=== PATIENT | male | born 1995 | race Caucasian/White ===

== ENCOUNTER 2016-08-06 05:03 | Day surgery (SDC) | payer OTHER ==
--- NOTE | 2016-07-24 14:09 | HISTORY & PHYSICAL EXAMINATION ---
DATE OF ADMISSION: 08/06/2016 CHIEF COMPLAINT: Left shoulder pain. HISTORY OF PRESENT ILLNESS: This 20-year-old male presents to the clinic for his preoperative history and physical. The patient has a 3+ year history of left shoulder injury with chronic subluxation. 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 The patient states that he has had approximately 10 instances of subluxation issue to date. At this time, the patient denies numbness or tingling in his left shoulder, swelling or bruising, but states he feels very unstable with certain movements. PAST SURGICAL HISTORY: Hypospadias repair, undescended testicle surgery, bilateral myringotomy, wisdom tooth extraction repair. PAST MEDICAL HISTORY: Noncontributory. FAMILY HISTORY: Mother had breast cancer. ALLERGIES: The patient has no known drug allergies. CURRENT MEDICATIONS: Taken at present none. SOCIAL HISTORY: The patient denies a history of smoking or illicit drug use, states that he consumes approximately 7-8 alcoholic beverages per week. PHYSICAL EXAMINATION: SKIN: The patient's skin is normal in appearance. No open skin lesions at discharge. EYES: Pupils are equal and reactive to light and accommodating. Extraocular movements are intact. EARS: Canals are clear of cerumen. Tympanic membranes are intact bilaterally with no bulging or effusion. NOSE: Turbinates pink and boggy in appearance. No appreciable rhinorrhea. THROAT: Posterior oropharynx is clear with absence of edema, erythema or exudate. CARDIOVASCULAR: The patient has a regular rate and rhythm with no murmurs or gallops appreciated. LUNGS: Auscultation of the lung wren reveals clear breath sounds throughout with no wheezing, rales or rhonchi. ABDOMEN: Soft, nonobese, nondistended, nontender with normoactive bowel sounds. EXTREMITIES: Left shoulder, the patient has no tenderness to palpation over the AC joint, glenohumeral groove, biceps tendon or posterior shoulder musculature. He has no tenderness over the proximal humerus. The patient has a negative Windham's test with thumbs up and down 0 and 30 degrees. He is able to forward flex and abduct 90 degrees and provide resistance without pain. He has a negative empty can test in the left upper extremity, negative subscapularis lift off test, negative apprehension and relocation test, negative sulcus sign, negative Batista-Dilan impingement test, negative Neer's impingement test, negative internal rotation test. The patient does experience positive cross arm test and positive test with externally rotation of the left shoulder. The patient is able to easily reach over head without any discomfort. He has no edema, erythema, ecchymosis, warmth or palpable deformity. He is neurovascularly intact in the lower extremities. His peripheral pulses are palpable. Capillary refill is brisk. All other extremities are normal in appearance with appropriate range of motion and strength. NEUROLOGIC: Cranial nerves II through XII are intact. No motor or sensory deficit. PSYCHOLOGICAL AND GENERAL: The patient is alert and oriented x3 with proper grooming and hygiene. DIAGNOSIS: Left shoulder recurrent instability. PROCEDURE: Left shoulder arthroscopy, labral/rotator cuff repair versus debridement, subacromial decompression, biceps tenotomy, remplissage, and examination under anesthesia. RADIOGRAPHIC IMAGING: Images of left shoulder obtained previously showed no fracture dislocations/subluxation. MRI shows anterior labral tear, small Hill-Sachs lesion and rotator cuff with minimal tendinosis. PLAN: The patient is scheduled to undergo the procedure with Dr. Luisito Vieira at the [facility] on 08/06/2016 pending PCP clearance. Risks and complications of surgery such as infection, bleeding, pain, scarring, nerve and blood vessel damage, weakness, wound problems, stiffness, incomplete relief of symptoms, heart attack, stroke, , hardware failure, fracture, recurrent tear and arthritis were explained to the patient and he understands and agrees. Written consent to perform the procedure was obtained. At this point, there is no indication for any preoperative testing. We will be awaiting medical clearance from the patient's primary care provider. The patient will be scheduled for his postoperative followup with Dr. Vieira in 2 weeks after the surgery. He would do his physical therapy starting 2-3 days after surgery with his return on campus. The patient was given a prescription for [place] Eagle for postoperative pain control. He is advised that he will be provided with an UltraSling for his left upper extremity following surgery. The patient verbalized understanding of all information provided, thanked us for the care that he received in our clinic and states that if he has any other questions or concerns that should arise prior to his scheduled procedure date, he will contact the clinic. BALAJI
[2016-08-01 14:55] VITALS: BMI 27.0
[~2016-08-06] VITALS: Ht 180.3 cm; Wt 88.6 kg
[2016-08-06 05:37] VITALS: BP 127/63; PULSE 73; TEMP 37; O2SAT 98; Ht 180.3 cm; Wt 88.6 kg
[2016-08-06] MEDS ORDERED: LACTATED RINGER'S 1000ML 1,000 ML IV SCH (06:00)
[2016-08-06] MEDS ORDERED: ONDANSETRON INJ 2 MG/ML 2 ML VIAL ONE ×2 (06:15→08:52)
[2016-08-06] MEDS ORDERED: GLYCOPYRROLATE INJ 0.2 MG/ML VIAL ONE ×2 (06:15→08:52)
[2016-08-06] MEDS ORDERED: DEXAMETHASONE SOD INJ 4 MG/ML VIAL ONE (06:15)
[2016-08-06] MEDS ORDERED: MEPIVACAINE HCL 1.5% 30 ML VIAL ONE (06:15)
[2016-08-06] MEDS ORDERED: BUPIVACAINE 0.5 % 5 MG/1 ML PF 10ML VIAL ONE (06:15)
[2016-08-06] MEDS ORDERED: NEOSTIGMINE METHYLSULFATE 5 MG/5 ML SYR ONE (06:15)
[2016-08-06] MEDS ORDERED: ROCURONIUM BROMIDE 10 MG/ML 5 ML VIAL ONE ×3 (06:15→09:13)
[2016-08-06] MEDS ORDERED: PROPOFOL IV EMULSION 10 MG/ML 20 ML VIAL IV ONE (06:15)
[2016-08-06] MEDS ORDERED: LIDOCAINE HCL 2% 2 ML VIAL (20MG/ML) ONE (06:15)
[2016-08-06] MEDS ORDERED: MIDAZOLAM HCL 1 MG/ML 2ML VIAL ONE ×2 (06:15)
[2016-08-06] MEDS ORDERED: FENTANYL CITRATE INJ 50 MCG/1 ML 2 ML VIAL ONE ×3 (06:16→09:34)
[2016-08-06] MEDS ORDERED: CEFAZOLIN IV 2,000 MG/60 ML D5W IV ONE (06:47)
--- NOTE | 2016-08-06 06:57 | History & Physical Bridge Note ---
H&P Re-Evaluation Bridge Note: I have examined the patient, reviewed the History & Physical and in the interval since the performance of the History & Physical I have noted the following changes of clinical significance: No changes noted
[2016-08-06] MEDS ORDERED: PROMETHAZINE HCL INJ 12.5 MG in SODIUM CHLORIDE 0.9% 50ML 50 ML IV PRN (07:15)
[2016-08-06] MEDS ORDERED: EpHEDrine SULFATE INJ 50 MG/ML AMP IV PRN (07:15)
[2016-08-06] MEDS ORDERED: ATROPINE SULFATE 0.1 MG/ML 5ML SYR IV PRN (07:15)
[2016-08-06] MEDS ORDERED: ONDANSETRON INJ 2 MG/ML 2 ML VIAL IV PRN ×2 (07:15→11:00)
[2016-08-06] MEDS ORDERED: EpHEDrine SULFATE 50MG/5ML SYR ONE (07:43)
[2016-08-06] MEDS ORDERED: HYDROmorphone INJ 2 MG/ML SYR/VIAL ONE (10:03)
[2016-08-06] MEDS ORDERED: SODIUM CHLORIDE 0.9% INJ 10 ML VIAL ONE (10:03)
--- NOTE | 2016-08-06 10:56 | [facility] Post Operative Brief Note ---
Immediate Operative Summary Operative Date Aug 06, 2016. Pre-Operative Diagnosis Left Shoulder anterior labral tear, small Hill-Sachs lesion and rotator cuff with minimal tendinosis. Post-Operative Diagnosis Same, loose body, synovitis, SLAP tear, Inferior & posterior labral tears, bursitis Procedure(s) Performed 1) Left Shoulder Arthroscopy; Anterior Labral Repair. 2) Loose body Removal. 3) Extensive Debridement, Labrum, RTC, synevectomy, and bursectomy. 4) EUA. Surgeon Dr. Luisito Vieira Nurse Liaison Surgeon(s) Hernan Snyder PA-C (No fellow avail) Estimated Blood Loss 6 ml Findings As above. Specimens None per Dr. Vieira Drains n/a Anesthesia GET + interscalene nerve block Complication(s) None Disposition Recovery Room / PACU (Stable)
--- NOTE | 2016-08-06 10:59 | Discharge Instructions ---
Discharge Instructions Admission Reason for Admission: Left Shoulder Recurrent Instability Discharge Discharge Diagnosis / Problem: S/P Left shoulder labral repair, extensive debridment, loose body removal. Discharge Goals Goal(s): Decrease discomfort, Improve function, Increase independence Activity Recommendations Activity Limitations: per Instructions/Follow-up section Lifting Limitations: no more than 5 pounds Exercise/Sports Limitations: none (except following rehab.) May Resume Sexual Activity: when tolerated Shower/Bathe: may shower/bathe in 3 days Driving or Machine Use: Not while on Narcotics or in sling . Instructions / Follow-Up Instructions / Follow-Up Dr. Vieira in 10-15 days. PT/ATC in 2-3 days. Current Hospital Diet Patient's current hospital diet: Regular Diet Discharge Diet Recommended Diet: Regular Diet Procedures Procedures Performed: 1) Left Shoulder Arthroscopy; Anterior Labral Repair. 2) Loose body Removal. 3) Extensive Debridement, Labrum, RTC, synevectomy, and bursectomy. 4) EUA. Pending Studies Studies pending at discharge: no School Instructions Return To School: time frame (within 1 week) Medical Emergencies . Who to Call and When: Medical Emergencies: If at any time you feel your situation is an emergency, please call 911 immediately. . Non-Emergent Contact Non-Emergency issues call your: Surgeon Call Non-Emergent contact if: temperature is above 101.5, your pain is not controlled, wound has increased drainage, wound has increased redness . "Provider Documentation" section prepared by Luisito Vieira. VTE Core Measure Inpt VTE Proph given/why not?: Other Anticoagulation (ASA 325 mg twice a day for 3 weeks), T.E.D. Stockings
[2016-08-06] MEDS ORDERED: MoRPHine SULFATE 4 MG/ML 1 ML CARP\\VIAL IV PRN (11:00)
[2016-08-06] MEDS ORDERED: OXYCODONE/ACETAMINOPHEN 5-325 TAB PO PRN (11:00)
[2016-08-06] MEDS ORDERED: MoRPHine SULFATE 2 MG/ML CARP IV PRN (11:00)
[2016-08-06] MEDS ORDERED: MIX:1% LIDO W/EPI 20ML & 0.5% BUP INJ ONE (11:00)
--- NOTE | 2016-08-06 11:00 | [facility] Operative Report ---
Operative Report Operative Date Aug 06, 2016. Pre-Operative Diagnosis Left Shoulder anterior labral tear, small Hill-Sachs lesion and rotator cuff with minimal tendinosis. Post-Operative Diagnosis Same, loose body, synovitis, SLAP tear, Inferior & posterior labral tears, Procedure(s) Performed 1) Left Shoulder Arthroscopy; Anterior Labral Repair. 2) Loose body Removal. 3) Extensive Debridement, Labrum, RTC, synevectomy, and bursectomy. 4) EUA. Surgeon Dr. Luisito Vieira Speech And Drama Teacher Surgeon(s) Hernan Snyder PA-C (No fellow avail) Estimated Blood Loss 6 ml Findings The left shoulder was then examined under anesthesia and it exhibited: Forward flexion and abduction to 160; external rotation 45; internal rotation 80. There was no noted instability. Posterior translation 1+ and anterior translation was 3+ and they had no sulcus sign and was symmetric to their other side. The diagnostic arthroscopy commenced with the following findings: 1. The biceps anchor was well attached to the glenoid, however there was a degenerative tear of the superior labrum. 2. The anterior labrum was torn off the glenoid from 7:00 to 11:00 position. There was a loose body noted between the glenoid neck and labrum. 3. The inferior labrum was well attached, but had some fraying. 4. The inferior pouch showed no loose bodies, but synovitis. 5. The posterior labrum was well attached, but also showed some fraying. 6. The articular surface of the glenoid was normal. 7. The articular surface of humeral head was normal, except for the area of the small Hill-Sachs lesion, in the adjacent cartilage to that area showed type 1 changes. 8. The long Head of the Biceps had minimal fraying. 9. The Subscapularis tendon was intact, surrounded by significant synovitis. 10. The Supraspinatus tendon had minimal fraying at the footprint, was surrounded by significant synovitis. 11. The Infraspinatus and Teres Minor were intact, but also surrounded by significant synovitis. 12. The Subacromial space showed bursitis, intact rotator cuff. 13. After repairing the anterior labrum, placing the arm abducted and externally rotated, the Hill-Sachs lesion did not engage. Fluids [address] None per Dr[address] 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 They have MRI and clinical findings suggestive of anterior and SLAP tears. After a lengthy discussion regarding their options of conservative versus operative management, they have elected to proceed with surgery. The risks of surgery were discussed and include but not limited to: Infection, bleeding, nerve damage, continued pain, progression of arthritis, stiffness, decreased level of activity, and deep vein thrombosis. The patient understood all of their options and the risks of surgery and would like to proceed. The informed consent was signed. Description of Procedure IMPLANTS: 1) FiberTak w/ 1.3 mm SutureTape (Arthrex). 2) 2.9 mm PushLock w/ LabralTape x 2, w/ FiberWire x 1 (Arthrex). PROCEDURE: The patient was taken to the operating room and following administration of her interscalene nerve block and general anesthetic, a multidisciplinary time-out was performed identifying my initials on the left shoulder as the correct and operative limb. The patient was then placed in lateral decubitus position with all of their bony prominences well-padded and an axillary roll. They were then prepped and draped in the usual orthopedic sterile fashion with 10 pounds of longitudinal traction and 5 pounds of abduction traction. All of the bony landmarks were marked as well as the planned incisions. The planned incisions were injected with a 50:50 mixture of 0.5% Marcaine plain and 1% Lidocaine with Epinephrine for a total of 8 cc. Then using a spinal needle which was placed intra-articularly into the glenohumeral joint and insufflated to 45 cc and there was noted appropriate back flow, an additional 15 cc were placed. The standard posterior portal was made with an 11-blade. Trocar was introduced into the glenohumeral joint in the standard fashion. Using a spinal needle, the anterior portal was placed lateral to the coracoid under direct visualization between the Long Head of the Biceps and Subscapularis. A 7mm cannula was then placed anteriorly, as well as in the standard posterior portal. A 5 mm disposable cannula from the percutaneous kit was used to place the 5:00 portal, trans-tendinous with the arm taken out of traction and adducted in the standard fashion. The intra-articular portion of shoulder was addressed first with debriding any fraying from the labrum and supraspinatus tear. The significant synovitis was also debrided with the mechanical shaver and Coolcut as it was encountered. The loose body was removed with a grasper. The arthroscope had also been removed from the posterior portal and placed anteriorly for better posterior visualization. Additional debridement of the posterior labrum and synovitis was also performed. The posterior labrum was probed and found to contain a stable rim. The anterior labrum was freed off the glenoid neck and there was a small bony portion within the inferior aspect of the labrum that elevated nicely. The glenoid neck was prepared with mechanical shaver and Mace rasp. using a curved guide to place and all suture suture anchor at the 7:30 position in the standard fashion. The suture tapes were passed in the standard fashion. While tightening the arthroscopic knot, the non-post tore near the knot, leaving one long limb. A second anchor was placed at the 8:30 position with a Pushlock that included FiberWire and incorporated the remaining limb of the first anchor. 2 additional Pushlocks were placed through the 5:00 portal, one trans-tendinously 9:30 and another after readjusting the cannula superiorly above the subscapularis tendon at the 11:00 position in the standard fashion using labral tapes. The anterior labrum was probed and found to be stable. The arm was taken out of traction, abducted and externally rotated and the Hill- Sachs lesion was non-engaging. The arthroscope was then placed subacromially. There was bursitis noted. A lateral portal was created under direct visualization with a spinal needle. Once the bursitis was removed, the bursal side of the rotator cuff was normal. All of the instruments were removed. The traction was taken off. The portal sites were closed with 3-0 Prolene in a standard fashion. Xeroform was placed overtop followed by 4 x 4's, ABDs, and foam tape. The patient was placed in an abduction sling. The sponge and needle counts were correct. POSTOPERATIVE INSTRUCTIONS: The patient will follow-up with physical therapy in two days. The patient will wear sling for 6 weeks. The patient will follow-up with me in 10 to 15 days. I attest to the content of the Intraoperative Record and any orders documented therein. Any exceptions are noted below.
--- NOTE | 2016-08-06 11:00 | [facility] Operative Report ---
Operative Report Operative Date Aug 06, 2016. Pre-Operative Diagnosis Left Shoulder anterior labral tear, small Hill-Sachs lesion and rotator cuff with minimal tendinosis. Post-Operative Diagnosis SAME, loose body, bursitis/synovitis Procedure(s) Performed left shoulder arthroscopy, anterior labral repair, loose body removal, extensive debridement, exam under anesthesia Surgeon Dr. Luisito Vieira Certified Optician Surgeon(s) Hernan Snyder PA-C (No fellow avail) Estimated Blood Loss 6 ml Findings same Specimens None per Dr. Vieira Drains n/a Anesthesia GET + interscalene nerve block Complication(s) None Disposition Recovery Room / PACU (Stable) Indications sustained injury to his left shoulder, MRI obtained, surgery recommended, consents signed Description of Procedure taken to the OR, prepped and draped, I was present the entire case, please see Dr. Vieira's op note for further detail I attest to the content of the Intraoperative Record and any orders documented therein. Any exceptions are noted below.
--- NOTE | 2016-08-06 11:49 | Anesthesiology Progress Note ---
Anesthesia Post Op Note Date & Time Aug 06, 2016 at 11:48 Vital Signs Pain Intensity: 0 Vital Signs Past 12 Hours Date Time Temp Pulse Resp B/P Pulse Ox O2 Delivery O2 Flow Rate FiO2 08/06/16 11:45 36.8 65 15 125/56 96 Room Air 08/06/16 11:35 81 14 123/59 100 Room Air 08/06/16 11:25 62 16 125/54 100 Mask 10 08/06/16 11:15 61 13 152/71 100 Mask 10 08/06/16 11:07 36.2 76 12 150/71 100 Mask 10 08/06/16 05:37 37 73 20 127/63 98 Room Air Notes Mental Status: alert / awake / arousable, participated in evaluation Pt Amnestic to Procedure: Yes Nausea / Vomiting: adequately controlled Pain: adequately controlled Airway Patency, RR, SpO2: stable & adequate BP & HR: stable & adequate Hydration State: stable & adequate Anesthetic Complications: no major complications apparent
[2016-08-06 12:50] VITALS: BP 125/51; PULSE 78; TEMP 37; O2SAT 99
--- NOTE | 2016-08-06 13:48 | [facility] Operative Report ---
Operative Report Operative Date Aug 06, 2016. Pre-Operative Diagnosis Left Shoulder anterior labral tear, small Hill-Sachs lesion and rotator cuff with minimal tendinosis. Post-Operative Diagnosis SAME, loose body, bursitis/synovitis Procedure(s) Performed ORIF right hand Surgeon Dr. Luisito Vieira Continuity Editor Surgeon(s) Hernan Snyder PA-C (No fellow avail) Estimated Blood Loss 6 ml Findings same as above Fluids [address] Vieira Drains n/a Anesthesia GET + interscalene nerve block Complication(s) None Disposition Recovery Room / PACU (Stable) Indications sustained injury to his right hand, xrays obtained, surgery recommended, consents signed Description of Procedure taken to the OR, prepped and draped, I was present the entire case, please see Dr. Vieira's op note for further detail I attest to the content of the Intraoperative Record and any orders documented therein. Any exceptions are noted below.
== END 2016-08-06 13:13 | disposition home or self-care (01) ==
LOC: C.ACU 05:03
PROVIDERS: ATTEND Orthopaedic Surgery Sports Medicine
DX: S43.422A Sprain of left rotator cuff capsule, initial encounter (principal); M25.312 Other instability, left shoulder; Z80.3 Family history of malignant neoplasm of breast; M75.102 Unspecified rotator cuff tear or rupture of left shoulder, not specified as traumatic; Z91.048 Other nonmedicinal substance allergy status; M75.82 Other shoulder lesions, left shoulder; X58.XXXA Exposure to other specified factors, initial encounter